=== PATIENT | female | born 1955 | race Caucasian/White ===

== ENCOUNTER 2016-09-06 10:53 | Day surgery (SDC) | payer MEDICARE ==
[~2016-09-06] VITALS: Ht 160 cm; Wt 64.5 kg
[~2016-09-06 10:53] MED LIST: CLONAZEPAM2 MG/TAB PO; CYMBALTA60 MG PO; K-DUR20 MEQ PO; LACTINEX GRANUL1 PCK PO; LIPITOR40 MG PO; NEXIUM40 MG PO; NORVASC2.5 MG PO; PEPCID20 MG PO; PERCOCET 5-3251 TAB PO; PHENERGAN25 M1 PO; QUESTRAN PACK4 G/PKT PO; RESTORIL15 MG PO; SEROQUEL200 MG PO; SOMA350 MG PO; TOPAMAX100 MG PO; TOPROL XL50 MG PO
[2016-09-06 11:39] LABS: BASOPHILS 0.4 % (0.0-2.0); EOSINOPHILS 2.1 % (0-7); HEMATOCRIT 45.2 % (36.0-48.0); HEMOGLOBIN 15.6 g/dL (12-16); IMMATURE GRANULOCYTES 0.3 % (0-5); LYMPHOCYTES 28.1 % (15-50); MCH 30.1 pg (26.0-34.0); MCHC 34.5 g/dL (31.0-37.0); MCV 87.3 fL (80.0-100.0); MEAN PLATELET VOLUME 9.6 fL (7.4-10.4); MONOCYTES 9.1 % (2-11); PLATELET COUNT 403 10x3/uL (130-400); RBC 5.18 10x6/uL (4.00-5.40); WBC 10.6 10x3/uL (4.8-10.8)
[2016-09-06 11:40] LABS: APTT 29.5 SECONDS (22.8-39.4); INR 0.91 (0.85-1.17); PROTIME 12.1 SECONDS (11.6-15.0)
[2016-09-06 11:49] LABS: ALBUMIN 3.7 g/dL (3.4-5.0); ANION GAP 13.7 mmol/L (8-16); BILIRUBIN - TOTAL 0.35 mg/dL (0.2-1.3); CARBON DIOXIDE 29.4 mmol/L (21.0-32.0); CREATININE - SERUM 0.9 mg/dL (0.6-1.3); POTASSIUM - SERUM 3.1 mmol/L (3.5-5.1); PROTEIN - SERUM 7.9 g/dL (6.4-8.2)
[2016-09-06] MEDS ORDERED: COMPAZINE5 MG PO (12:00)
[2016-09-06] MEDS ORDERED: SEROQUEL300 MG PO (12:03)
[2016-09-06 12:11] VITALS: BP 128/85; Ht 160 cm; Wt 64.5 kg
[2016-09-06] MEDS ORDERED: LINZESS290 MCG PO (13:40)
--- NOTE | 2016-09-19 12:04 | OP ---
PATIENT NAME: VIPUL MCGARRY MEDICAL RECORD: [id number] :57 LOCATION:D.OPS ADMISSION DATE: SURGEON: ANYI CLAYTON DO DATE OF OPERATION: 09/06/2016 PROCEDURES: EGD with biopsies. ENDOSCOPIST: Anyi Clayton DO. SCOPE: Olympus video gastroscope. MEDICATIONS: Propofol 140 mg IV per anesthesia. INDICATION FOR THE PROCEDURE: Epigastric abdominal pain; gastroparesis, status post gastric pacemaker; GERD, nausea and vomiting. FINDINGS: Informed consent was given. The patient was made comfortable with the above medications. After reaching adequate level of sedation by slow IV push, the patient was placed on her left side. The endoscope was then advanced under direct visualization through the mouth to the second portion of the duodenum. The upper, middle, and lower thirds of the esophagus appeared normal. At the GE junction, there was some evidence of mild reflux-induced esophagitis. The scope was advanced into the stomach and retroflexed to view the cardia and fundus. There was a diminutive sliding hiatal hernia present. Scope was then advanced down to the antrum and incisura. There was some mild evidence of gastritis with findings of granularity and erythema in the stomach. Random biopsies were taken of the antrum, incisura, body of the stomach, and fundus. Scope was advanced down through the pylorus to the level of the bulb and second portion of the duodenum. The duodenum appeared normal. Scope was then withdrawn from the patient. The patient tolerated the procedure well and there were no complications. IMPRESSION: 1. Mild reflux-induced esophagitis at the gastroesophageal junction. 2. Diminutive sliding hiatal hernia. 3. Possible gastritis with cold forceps biopsies currently pending. PLAN AND RECOMMENDATIONS: 1. Continue current medications including Nexium 40 mg daily. 2. Recommend discontinuation of marijuana. 3. We will work on better bowel movements from a lower digestive standpoint with Linzess 290 mcg daily. 4. We will follow up in the clinic to review symptoms and discuss any further workup versus further treatment that can be offered. TRANSINT:[id number] Voice Confirmation ID: [id number] DOCUMENT ID: [id number] OPERATIVE REPORT [id number] VIPUL MCGARRY ANYI CLAYTON DO at [id number] CC: [id number] DICTATION DATE: 09/06/16 1327 MIXER OPERATOR RAW SALT: 09/06/16 2205 [facility] 09/06/16 [place] [id number] [place] [id number]
== END 2016-09-06 14:29 | disposition home or self-care (01) ==
LOC: D.OPS 10:53
PROVIDERS: Anesthesiology
DX: R10.13 Epigastric pain (principal); R11.2 Nausea with vomiting, unspecified; F17.200 Nicotine dependence, unspecified, uncomplicated; I10 Essential (primary) hypertension; K44.9 Diaphragmatic hernia without obstruction or gangrene; K21.9 Gastro-esophageal reflux disease without esophagitis; E11.9 Type 2 diabetes mellitus without complications; Z95.5 Presence of coronary angioplasty implant and graft; K20.9 Esophagitis, unspecified

== ENCOUNTER 2016-11-29 15:26 | Emergency (ER) | payer MEDICARE ==
[2016-09-06 12:11] VITALS: BMI 25.2
[~2016-11-29 15:26] MED LIST changes: +COMPAZINE5 MG PO; +LINZESS290 MCG PO; +SEROQUEL300 MG PO
[2016-11-29 16:40] LABS: BASOPHILS 0.5 % (0-2); EOSINOPHILS 2.4 % (0-7); IMMATURE GRANULOCYTES 0.2 % (0-5); LYMPHOCYTES 43.9 % (15-50); MCH 29.4 pg (26.0-34.0); MCHC 34.9 g/dL (31.0-37.0); MCV 84.1 fL (80.0-100.0); MEAN PLATELET VOLUME 9.2 fL (7.4-10.4); MONOCYTES 9.5 % (2-11); NEUTROPHILS 43.5 % (40-80); PLATELET COUNT 397 10x3/uL (130-400); RBC 5.11 10x6/uL (4.00-5.40); RDW 15.8 % (11.5-14.5); WBC 8.4 10x3/uL (4.8-10.8)
[2016-11-29 16:56] LABS: ALBUMIN 3.2 g/dL (3.4-5.0); ANION GAP 9.9 mmol/L (8-16); BILIRUBIN - TOTAL 0.29 mg/dL (0.2-1.3); CALCIUM 8.9 mg/dL (8.5-10.1); CARBON DIOXIDE 30.5 mmol/L (21.0-32.0); CREATININE - SERUM 1.1 mg/dL (0.6-1.3); MAGNESIUM - SERUM 1.7 mg/dL (1.8-2.4); PROTEIN - SERUM 6.9 g/dL (6.4-8.2)
[2016-11-29 17:08] LABS: POTASSIUM - SERUM 2.4 mmol/L (3.5-5.1)
[2016-11-29 19:46] LABS: ANION GAP 9.7 mmol/L (8-16); CALCIUM 8.5 mg/dL (8.5-10.1); CARBON DIOXIDE 29.7 mmol/L (21.0-32.0); CREATININE - SERUM 1.1 mg/dL (0.6-1.3)
[2016-11-29 19:58] LABS: POTASSIUM - SERUM 2.4 mmol/L (3.5-5.1)
== END 2016-11-29 23:01 | disposition home or self-care (01) ==
LOC: D.ER 15:26
PROVIDERS: Emergency Medicine; Physician Assistant
DX: E87.6 Hypokalemia (principal); K31.84 Gastroparesis; R11.2 Nausea with vomiting, unspecified; K29.70 Gastritis, unspecified, without bleeding; I10 Essential (primary) hypertension; F31.9 Bipolar disorder, unspecified; F32.9 Major depressive disorder, single episode, unspecified

== ENCOUNTER 2017-02-19 15:59 | Emergency (ER) | payer MEDICARE ==
[2016-09-06 12:11] VITALS: BMI 25.2
[2017-02-19 16:30] LABS: BASOPHILS 0.2 % (0-2); EOSINOPHILS 0.9 % (0-7); HEMATOCRIT 46.3 % (36.0-48.0); HEMOGLOBIN 16.1 g/dL (12-16); IMMATURE GRANULOCYTES 0.2 % (0-5); LYMPHOCYTES 30.9 % (15-50); MCH 28.8 pg (26.0-34.0); MCHC 34.8 g/dL (31.0-37.0); MCV 82.7 fL (80.0-100.0); MEAN PLATELET VOLUME 9.3 fL (7.4-10.4); MONOCYTES 12.4 % (2-11); NEUTROPHILS 55.4 % (40-80); PLATELET COUNT 397 10x3/uL (130-400); RDW 16.4 % (11.5-14.5); WBC 9.3 10x3/uL (4.8-10.8)
[2017-02-19 16:54] LABS: ALBUMIN 3.8 g/dL (3.4-5.0); ANION GAP 15.1 mmol/L (8-16); BILIRUBIN - TOTAL 0.4 mg/dL (0.2-1.3); CALCIUM 9.6 mg/dL (8.5-10.1); CARBON DIOXIDE 28.9 mmol/L (21.0-32.0); CREATININE - SERUM 0.9 mg/dL (0.6-1.3); PROTEIN - SERUM 7.5 g/dL (6.4-8.2)
[2017-02-19 18:30] LABS: APPEARANCE CLEAR (CLEAR); BILIRUBIN NEGATIVE (NEGATIVE); COLOR YELLOW (YELLOW); GLUCOSE NEGATIVE (NEGATIVE); KETONE NEGATIVE (NEGATIVE); LEUKOCYTE ESTERASE NEGATIVE (NEGATIVE); NITRITE NEGATIVE (NEGATIVE); PROTEIN NEGATIVE (NEGATIVE); UROBILINOGEN NORMAL (NORMAL)
== END 2017-02-19 20:34 | disposition home or self-care (01) ==
LOC: D.ER 15:59
PROVIDERS: Emergency Medicine; Nurse Practitioner Acute Care
DX: R10.9 Unspecified abdominal pain (principal); E87.6 Hypokalemia; I10 Essential (primary) hypertension

== ENCOUNTER 2018-01-27 20:28 | Emergency (ER) | payer MEDICARE ==
[~2018-01-27] VITALS: Ht 160 cm; Wt 68.2 kg
[2018-01-27 20:54] VITALS: Ht 160 cm; Wt 68.2 kg
[2018-01-27] MEDS ORDERED: METRONIDAZOLE70 GM (20:57)
[2018-01-27 21:45] LABS: BASOPHILS 0.5 % (0-2); EOSINOPHILS 2.1 % (0-7); HEMOGLOBIN 15.2 g/dL (12-16); IMMATURE GRANULOCYTES 0.2 % (0-5); LYMPHOCYTES 38.4 % (15-50); MCH 31.1 pg (26.0-34.0); MCHC 36.2 g/dL (31.0-37.0); MCV 86.1 fL (80.0-100.0); MEAN PLATELET VOLUME 9.1 fL (7.4-10.4); MONOCYTES 10.1 % (2-11); NEUTROPHILS 48.7 % (40-80); PLATELET COUNT 376 10x3/uL (130-400); RBC 4.88 10x6/uL (4.00-5.40); RDW 14.6 % (11.5-14.5); WBC 11.4 10x3/uL (4.8-10.8)
[2018-01-27 21:56] LABS: APPEARANCE CLEAR (CLEAR); BILIRUBIN NEGATIVE (NEGATIVE); COLOR YELLOW (YELLOW); GLUCOSE NEGATIVE (NEGATIVE); KETONE NEGATIVE (NEGATIVE); NITRITE NEGATIVE (NEGATIVE); PROTEIN NEGATIVE (NEGATIVE); SPECIFIC GRAVITY 1.005 (1.005-1.020); UROBILINOGEN NORMAL (NORMAL)
[2018-01-27 21:58] LABS: BACTERIA MODERATE /hpf (NONE SEEN); RED CELLS - URINE 0-5 /hpf (0-5)
[2018-01-27 22:00] LABS: ALBUMIN 3.4 g/dL (3.4-5.0); ANION GAP 8.5 mmol/L (8-16); BILIRUBIN - TOTAL 0.38 mg/dL (0.2-1.3); CALCIUM 8.6 mg/dL (8.5-10.1); CARBON DIOXIDE 31.2 mmol/L (21.0-32.0); PROTEIN - SERUM 7.1 g/dL (6.4-8.2)
[2018-01-27 22:03] LABS: POTASSIUM - SERUM 2.7 mmol/L (3.5-5.1)
[2018-01-28 06:25] VITALS: BP 125/78
== END 2018-01-28 06:25 | disposition home or self-care (01) ==
LOC: D.ER 20:28
PROVIDERS: Family Medicine
DX: E87.6 Hypokalemia (principal); R10.9 Unspecified abdominal pain; C18.9 Malignant neoplasm of colon, unspecified; Z85.3 Personal history of malignant neoplasm of breast; I25.10 Atherosclerotic heart disease of native coronary artery without angina pectoris; I73.9 Peripheral vascular disease, unspecified; K21.9 Gastro-esophageal reflux disease without esophagitis; F17.200 Nicotine dependence, unspecified, uncomplicated

== ENCOUNTER 2018-02-04 07:25 | Day surgery (SDC) | payer MEDICARE ==
[~2018-02-04] VITALS: Ht 160 cm; Wt 68.2 kg
--- NOTE | ~2018-02-04 | OP ---
PATIENT NAME: VIPUL MCGARRY MEDICAL RECORD: [id number] :57 LOCATION:D.OPS ADMISSION DATE: SURGEON: ANYI CLAYTON DO DATE OF OPERATION: 02/04/2018 PROCEDURE: Colonoscopy with polypectomy and biopsies. INDICATIONS FOR PROCEDURE: Left lower quadrant abdominal pain and abnormal findings on CT of the abdomen and pelvis with narrowing of the mid transverse colon. SCOPE: Olympus video pediatric colonoscope. MEDICATIONS: Propofol 650 mg IV per anesthesia. WITHDRAWAL TIME: 21 minutes. ESTIMATED BLOOD LOSS: Minimal. COMPLICATIONS: None. FINDINGS: Informed consent was given. The patient was made comfortable with the above medication. After reaching an adequate level of sedation by slow IV push, the patient was placed on her left side. A digital rectal examination was performed and was normal. The endoscope was advanced under direct visualization through the rectum to the terminal ileum. The endoscope was slowly withdrawn and mucosa was carefully examined. The prep quality was fair. There were multiple polyps visualized on today's examination. Two were located in the ascending colon. One was a slightly larger polyp measuring approximately 9 mm in diameter. This one was removed using endoscopic mucosal resection technique with an injection of isotonic saline as a cushion followed by a hot snare polypectomy in 1 piece. A second polyp was benign appearing and sessile and measured approximately 6 mm in diameter. It was removed using a hot snare in 1 piece and completely retrieved. In the transverse colon, there was a single polyp which was benign appearing and sessile. It measured approximately 5 mm in diameter and was removed in 1 piece using a hot snare and completely retrieved. In the descending colon, there were 3 separate benign appearing sessile polyps, which ranged in size from 2-5 mm in diameter. They were removed using hot forceps in 1 piece and completely retrieved. In the rectum, there was a single benign appearing sessile polyp, which measured approximately 2-3 mm in diameter. It was removed using hot forceps in 1 piece and completely retrieved. Random biopsies were taken in the transverse colon. There were no masses visualized on today's examination, which is the main indication for the procedure today based on the abnormal CT scan. The mucosa in the transverse colon maybe appeared slightly edematous and granular. Again, cold forceps biopsies were taken to submit for histopathology. There were no other abnormalities visualized on today's examination. Retroflexion was performed in the rectum with normal appearing rectal wall. The endoscope was withdrawn from the patient. The patient tolerated the procedure well and there were no complications. IMPRESSION: 1. Multiple polyps as described above, removed using a combination of endoscopic mucosal resection technique, hot snare, and hot forceps. 2. Slightly edematous and congested mucosa in the transverse colon, which was biopsied. OPERATIVE REPORT [id number] MALGORZATAVIPUL FREY 3. Otherwise, normal colonoscopy without findings of tumor or masses. PLAN AND RECOMMENDATIONS: 1. Discharge home when recovery parameters are met. 2. Follow up biopsy specimen results. 3. High fiber diet. 4. Continue current medications including Linzess. 5. Recall colonoscopy in 2-3 years based on personal history of polyps. TRANSINT:[id number] Voice Confirmation ID: [id number] DOCUMENT ID: [id number] ANYI CLAYTON DO at 1351 CC: [id number] DICTATION DATE: 02/04/18 1053 CARGO OPERATIONS AGENT: 02/04/18 1244 [facility] 02/04/18 [place] [id number] [place] [address]
[~2018-02-04 07:25] MED LIST changes: +METRONIDAZOLE70 GM
[2018-02-04 07:43] LABS: HEMATOCRIT 47.2 % (36.0-48.0); HEMOGLOBIN 17.1 g/dL (12-16); MCHC 36.2 g/dL (31.0-37.0); MCV 85.7 fL (80.0-100.0); MEAN PLATELET VOLUME 9.1 fL (7.4-10.4); RBC 5.51 10x6/uL (4.00-5.40); RDW 14.7 % (11.5-14.5); WBC 8.9 10x3/uL (4.8-10.8)
[2018-02-04] MEDS ORDERED: PEPCID20 MG PO (08:35)
[2018-02-04 08:44] VITALS: BP 136/88; Ht 160 cm; Wt 68.2 kg
== END 2018-02-04 11:50 | disposition home or self-care (01) ==
LOC: D.OPS 07:25
PROVIDERS: Anesthesiology
DX: D12.2 Benign neoplasm of ascending colon (principal); D12.4 Benign neoplasm of descending colon; D12.3 Benign neoplasm of transverse colon; K63.5 Polyp of colon; K62.1 Rectal polyp; Z01.812 Encounter for preprocedural laboratory examination

== ENCOUNTER 2020-04-05 16:30 | Inpatient (IN) | payer MEDICARE, MEDICAID ==
[~2020-04-05] VITALS: Ht 162.6 cm; Wt 77.3 kg
[2020-04-05 17:37] LABS: BASOPHILS 0.4 % (0-2); EOSINOPHILS 2.2 % (0-7); HEMATOCRIT 40.6 % (36.0-48.0); HEMOGLOBIN 13.1 g/dL (12-16); IMMATURE GRANULOCYTES 0.2 % (0-5); LYMPHOCYTES 37.6 % (15-50); MCHC 32.3 g/dL (31.0-37.0); MEAN PLATELET VOLUME 9.1 fL (7.4-10.4); MONOCYTES 13.6 % (2-11); RBC 4.51 10x6/uL (4.00-5.40); RDW 13.9 % (11.5-14.5); WBC 9.6 10x3/uL (4.8-10.8)
[2020-04-05 17:44] LABS: PLATELET COUNT 500 10x3/uL (130-400)
[2020-04-05 17:58] LABS: KETONE NEGATIVE (NEGATIVE); NITRITE NEGATIVE (NEGATIVE); UROBILINOGEN NORMAL mg/dL (< 2)
[2020-04-05 18:10] LABS: BILIRUBIN NEGATIVE (NEGATIVE)
[2020-04-05 18:17] LABS: ALBUMIN 3.6 g/dL (3.4-5.0); ALKALINE PHOSPHATASE 86 U/L (30-120); ALT (SGPT) 12 U/L (10-68); AMYLASE - SERUM 38 U/L (25-115); BILIRUBIN - TOTAL 0.25 mg/dL (0.2-1.3); CALC OSMOLALITY 274 mosm/kg (275-300); CALCIUM 9.5 mg/dL (8.5-10.1); CARBON DIOXIDE 29.9 mmol/L (21.0-32.0); CHLORIDE - SERUM 99 mmol/L (98-107); CREATININE - SERUM 1.2 mg/dL (0.6-1.3); GLUCOSE 116 mg/dL (74-106); LIPASE 95 U/L (73-393); SODIUM 138 mmol/L (136-145); TROPONIN-I < 0.017 ng/mL (0.000-0.060); UREA NITROGEN 8 mg/dL (7-18); eGFR NON AFRICAN AMERICAN 48 mL/min (90-120)
[2020-04-05 18:20] LABS: POTASSIUM - SERUM 2.5 mmol/L (3.5-5.1)
[2020-04-05 23:33] VITALS: BP 139/75
--- NOTE | 2020-04-05 23:55 | NUR ---
MARYANAE SUPERVISIOR NOTIFIED FOR MEDICATIONS TO BE GIVEN. UNAVAILABLE AT THIS TIME
[2020-04-06] VITALS (11 sets, daily range): BP systolic 116–163; BP diastolic 56–88; Ht 162.6 cm; Wt 77.3 kg
[2020-04-06 06:32] LABS: BASOPHILS 0.3 % (0-2); EOSINOPHILS 2.4 % (0-7); HEMATOCRIT 37.4 % (36.0-48.0); HEMOGLOBIN 12.1 g/dL (12-16); IMMATURE GRANULOCYTES 0.2 % (0-5); LYMPHOCYTES 30.3 % (15-50); MCH 29.4 pg (26.0-34.0); MCHC 32.4 g/dL (31.0-37.0); MEAN PLATELET VOLUME 9.2 fL (7.4-10.4); MONOCYTES 13.9 % (2-11); NEUTROPHILS 52.9 % (40-80); PLATELET COUNT 513 10x3/uL (130-400); RBC 4.11 10x6/uL (4.00-5.40); WBC 9.6 10x3/uL (4.8-10.8)
[2020-04-06 06:59] LABS: APTT 27.3 SECONDS (22.8-39.4); INR 1.09 (0.85-1.17)
[2020-04-06 07:04] LABS: ANION GAP 7.7 mmol/L (8-16); CALCIUM 8.3 mg/dL (8.5-10.1); CARBON DIOXIDE 31.7 mmol/L (21.0-32.0); PHOSPHOROUS 2.5 mg/dL (2.5-4.9)
[2020-04-06 07:10] LABS: POTASSIUM - SERUM 2.4 mmol/L (3.5-5.1)
--- NOTE | 2020-04-06 12:30 | NUR ---
PATIENT LEFT UNIT AT THIS TIME TO PROCEDURE.
[2020-04-06 14:32] LABS: BILIRUBIN NEGATIVE (NEGATIVE); KETONE NEGATIVE (NEGATIVE); NITRITE NEGATIVE (NEGATIVE); UROBILINOGEN NORMAL mg/dL (< 2)
[2020-04-06] MEDS ORDERED: IMITREX100 MG PO (16:27)
[2020-04-06] MEDS ORDERED: TRAZODONE HCL100 MG PO (16:29)
[2020-04-06] MEDS ORDERED: CATAPRES0.1 MG PO (16:30)
[2020-04-06] MEDS ORDERED: VOLTAREN100 GM TOPICAL (16:31)
[2020-04-06] MEDS ORDERED: MAG-OXIDE400 MG PO (16:32)
[2020-04-06] MEDS ORDERED: PROTONIX40 MG PO (16:34)
[2020-04-06] MEDS ORDERED: K-DUR20 MEQ PO (16:34)
[2020-04-06] MEDS ORDERED: REGLAN5 MG PO (16:35)
[2020-04-06] MEDS ORDERED: HYDROXYCHLOROQ200 MG PO (16:36)
[2020-04-06] MEDS ORDERED: PHENERGAN25 M1 PO (16:37)
--- NOTE | 2020-04-06 20:00 | NUR ---
PT SITTING UP IN BED WITHOUT DISTRESS, AOX4. ABD DISTENDED AND TENDER, HAVING A LOT OF GAS. REQUESTED AND GIVEN MORPHINE. IV LEFT FA INFUSING NS WITH 20K @ 75. DENIES OTHER NEEDS AT THIS TIME. CL IN REACH, WILL CTM
[2020-04-07 04:00] VITALS: BP 113/73
[2020-04-07 06:24] LABS: BASOPHILS 0.2 % (0-2); EOSINOPHILS 1.8 % (0-7); HEMATOCRIT 31.2 % (36.0-48.0); HEMOGLOBIN 10.2 g/dL (12-16); IMMATURE GRANULOCYTES 0.2 % (0-5); LYMPHOCYTES 32.4 % (15-50); MCH 29.7 pg (26.0-34.0); MCHC 32.7 g/dL (31.0-37.0); MCV 90.7 fL (80.0-100.0); MEAN PLATELET VOLUME 9.5 fL (7.4-10.4); MONOCYTES 13.9 % (2-11); NEUTROPHILS 51.5 % (40-80); PLATELET COUNT 474 10x3/uL (130-400); RBC 3.44 10x6/uL (4.00-5.40); WBC 8.9 10x3/uL (4.8-10.8)
[2020-04-07 06:56] LABS: CARBON DIOXIDE 25.5 mmol/L (21.0-32.0); CHLORIDE - SERUM 108 mmol/L (98-107); GLUCOSE 106 mg/dL (74-106); MAGNESIUM - SERUM 2.1 mg/dL (1.8-2.4); PHOSPHOROUS 2.1 mg/dL (2.5-4.9); SODIUM 142 mmol/L (136-145); eGFR NON AFRICAN AMERICAN 89 mL/min (90-120)
[2020-04-07 06:57] LABS: CALC OSMOLALITY 279 mosm/kg (275-300); CREATININE - SERUM 0.7 mg/dL (0.6-1.3); UREA NITROGEN 5 mg/dL (7-18)
[2020-04-07 09:11] VITALS: BP 123/76
[2020-04-07] MEDS ORDERED: MIRALAX17 GM PO (09:32)
[2020-04-07 11:36] VITALS: BP 132/80
--- NOTE | 2020-04-07 13:22 | MORECARE ---
CASE MANAGEMENT DISCHARGE SUMMARY PATIENT: VIPUL MCGARRY UNIT: [id number] ADM DATE: 04/05/20 AGE: 65 : 57 SEX: F ROOM/BED: D.2211 AUTHOR: ALFONSO TOWNSEND PHYSICIAN: REFERRING PHYSICIAN: MATTY SUTTON MD DATE OF SERVICE: 04/07/20 Discharge Plan Patient Name: VIPUL MCGARRY Facility: [facility]:[place] : 1955 Planned Disposition: Home or Self Care Anticipated Discharge Date: Discharge Date: Expected LOS: Initial Reviewer: [email or web address] Initial Review Date: 04/05/2020 Generated: 04/07/20 2:21 pm DCPIA - Discharge Planning Initial Assessment Updated by [email or web address]: Massiel Doherty on 04/07/20 1:20 pm * Is the patient Alert and Oriented? Yes * How many steps to enter\exit or inside your home? * PCP SKETAS * Pharmacy [facility] * Preadmission Environment Home with Family * ADLs Partial Dependent * Partial ADLs (Assistance needed) Bathing Dressing * Equipment Bedside Commode Rolling Walker * List name and contact numbers for known caregivers / representatives who currently or will assist patient after discharge: JIMBO ( DAUGHTER) [phone] * Verbal permission to speak to the caregivers and representatives has been obtained from the patient. N/A * Community resources currently utilized None * Additional services required to return to the preadmission environment? No * Can the patient safely return to the preadmission environment? Yes * Has this patient been hospitalized within the prior 30 days at any hospital? No Patient Name: VIPUL MCGARRY Page [id number] at 1322 All edits/amendments must be made on the electronic document DICTATION DATE: 04/07/20 1321 BELT PRESS OPERATOR: ZEINA 04/07/20 1321 RPT#: [id number] DC DATE: STATUS: ADM IN [facility] [address] [place] [address] END OF REPORT
--- NOTE | 2020-04-07 13:31 | MORECARE ---
CASE MANAGEMENT DISCHARGE SUMMARY PATIENT: VIPUL MCGARRY UNIT: [id number] ADM DATE: 04/05/20 AGE: 65 : 57 SEX: F ROOM/BED: D.2211 AUTHOR: ALFONSO TOWNSEND PHYSICIAN: REFERRING PHYSICIAN: MATTY SUTTON MD DATE OF SERVICE: 04/07/20 Discharge Plan Patient Name: VIPUL MCGARRY Facility: [facility]:[place] : 1955 Planned Disposition: Home or Self Care Anticipated Discharge Date: Discharge Date: Expected LOS: Initial Reviewer: [email or web address] Initial Review Date: 04/05/2020 Generated: 04/07/20 2:30 pm Comments DCP- Discharge Planning Updated by [email or web address]: Massiel Doherty on 04/07/20 12:[address] Patient Name: VIPUL MCGARRY Admission Status: ER Accout number: [id number] Admission Date: 04-05-2020 : 1955 Admission Diagnosis:NONINFECTIVE GASTROENTERITIS AND COLITIS, UNSPECIFIED Attending: MATTY SUTTON Current LOS: 2 Anticipated DC Date: Planned Disposition: Home or Self Care Primary Insurance: MEDICARE A & B Discharge Planning Comments: CM met with patient to complete initial dc planning assessment. CM educated patient on the CM role and verbal consent given by patient to complete assessment. Patient lives at home with daughter. At discharge patient plans to return home and feels this is a safe discharge. CM discussed availability of home health, rehab services, and medical equipment. She did not want home health. She stated that her daughter would be her home delivery driver home and helps her with her baths. She has a walker. She stated that she has ordered a BSC. Patient denied known discharge needs at this time. CM will continue to follow and will assist as needed with dc plans/needs. Stockroom Selector: Massiel Doherty DCPIA - Discharge Planning Initial Assessment Updated by [email or web address]: Massiel Doherty on 04/07/20 1:20 pm * Is the patient Alert and Oriented? Yes * How many steps to enter\exit or inside your home? * PCP SKETAS * Pharmacy [facility] * Preadmission Environment Home with Family * ADLs Partial Dependent * Partial ADLs (Assistance needed) Bathing Dressing * Equipment Bedside Commode Rolling Walker * List name and contact numbers for known caregivers / representatives who currently or will assist patient after discharge: JIMBO ( DAUGHTER) [phone] * Verbal permission to speak to the caregivers and representatives has been obtained from the patient. N/A * Community resources currently utilized None * Additional services required to return to the preadmission environment? No * Can the patient safely return to the preadmission environment? Yes * Has this patient been hospitalized within the prior 30 days at any hospital? No Last DP export: 04/07/20 12:22 Patient Name: VIPUL MCGARRY Page [id number] at 1331 All edits/amendments must be made on the electronic document DICTATION DATE: 04/07/201329 FORENSIC ACCOUNTANT: ZEINA 04/07/201329 RPT#: [id number] DC DATE: STATUS: ADM IN [facility] [address] [place] [address] END OF REPORT
--- NOTE | 2020-04-07 14:42 | NUR ---
DISCHARGE PAPERS COMPLETE. NO FURTHER QUESTIONS. IV CATH REMOVED. CATH TIP INTACT. BELONGINGS GATHERED. PATIENT LEFT FLOOR VIA WHEELCHAIR TO HOME.
--- NOTE | 2020-04-09 10:52 | MORECARE ---
CASE MANAGEMENT DISCHARGE SUMMARY PATIENT: VIPUL MCGARRY UNIT: [id number] ADM DATE: 04/05/20 AGE: 65 : 57 SEX: F ROOM/BED: D.2211 AUTHOR: KRISTIAN,DOC PHYSICIAN: REFERRING PHYSICIAN: MATTY SUTTON MD DATE OF SERVICE: 04/09/20 Discharge Plan Patient Name: VIPUL MCGARRY Facility: [facility]:[place] : 1955 Planned Disposition: Home or Self Care Anticipated Discharge Date: Discharge Date: 04/07/2020 Expected LOS: 0 Initial Reviewer: [email or web address] Initial Review Date: 04/05/2020 Generated: 04/09/20 11:51 am Comments DCP- Discharge Planning Updated by [email or web address]: Massiel Doherty on 04/07/20 12:[address] Patient Name: VIPUL MCGARRY Admission Status: ER Accout number: [id number] Admission Date: 04-05-2020 : 1955 Admission Diagnosis:NONINFECTIVE GASTROENTERITIS AND COLITIS, UNSPECIFIED Attending: MATTY SUTTON Current LOS: 2 Anticipated DC Date: Planned Disposition: Home or Self Care Primary Insurance: MEDICARE A & B Discharge Planning Comments: CM met with patient to complete initial dc planning assessment. CM educated patient on the CM role and verbal consent given by patient to complete assessment. Patient lives at home with daughter. At discharge patient plans to return home and feels this is a safe discharge. CM discussed availability of home health, rehab services, and medical equipment. She did not want home health. She stated that her daughter would be her auto carrier driver home and helps her with her baths. She has a walker. She stated that she has ordered a BSC. Patient denied known discharge needs at this time. CM will continue to follow and will assist as needed with dc plans/needs. Staff Nurse [facility] Resource Team: Massiel Doherty DCPIA - Discharge Planning Initial Assessment Updated by [email or web address]: Massiel Doherty on 04/07/20 1:20 pm * Is the patient Alert and Oriented? Yes * How many steps to enter\exit or inside your home? * PCP SKETAS * Pharmacy [facility] * Preadmission Environment Home with Family * ADLs Partial Dependent * Partial ADLs (Assistance needed) Bathing Dressing * Equipment Bedside Commode Rolling Walker * List name and contact numbers for known caregivers / representatives who currently or will assist patient after discharge: JIMBO ( DAUGHTER) [phone] * Verbal permission to speak to the caregivers and representatives has been obtained from the patient. N/A * Community resources currently utilized None * Additional services required to return to the preadmission environment? No * Can the patient safely return to the preadmission environment? Yes * Has this patient been hospitalized within the prior 30 days at any hospital? No Last DP export: 04/07/20 12:31 Patient Name: VIPUL MCGARRY Page [phone] at 1052 All edits/amendments must be made on the electronic document DICTATION DATE: 04/09/20 1051 DISABILITY SERVICES COORDINATOR: ZEINA 04/09/20 1051 RPT#: [id number] DC DATE:04/07/20 STATUS: DIS IN [facility] [address] [place] [address] END OF REPORT
== END 2020-04-07 14:43 | disposition home or self-care (01) | DRG 392 ==
LOC: D.ER 16:30 → D.EDHOLD 22:03 → D.MS 22:03 → D.EDHOLD 22:14 → D.MS 04-06 06:24
PROVIDERS: Family Medicine; Internal Medicine Gastroenterology; ADMIT Family Medicine; ATTEND Family Medicine
PROC: 0DBL8ZX Excision of Transverse Colon, Via Natural or Artificial Opening Endoscopic, Diagnostic (ICD-10-PCS; principal; 2020-04-06 12:30)
DX: K59.00 Constipation, unspecified (principal); K52.9 Noninfective gastroenteritis and colitis, unspecified; E87.6 Hypokalemia; I10 Essential (primary) hypertension; E78.5 Hyperlipidemia, unspecified; M19.90 Unspecified osteoarthritis, unspecified site; F31.9 Bipolar disorder, unspecified; K31.84 Gastroparesis; I25.10 Atherosclerotic heart disease of native coronary artery without angina pectoris